=== PATIENT | male | born 1965 | race Hispanic/Latino ===

== ENCOUNTER 2018-12-30 07:48 | Observation (INO) | payer BC, SELFPAY ==
[2018-12-30] MEDS ORDERED: Aspirin Chewable 81 MG TAB ONE (08:45)
[2018-12-30] MEDS ORDERED: Nitroglycerin 0.4 MG TAB 1 EACH ONE (08:45)
[2018-12-30 08:49] LABS: #Eosinphils 0.1 thou/uL (0.0-0.7); #Lymphocytes 1.9 thou/uL (1.20-3.40); #Monocytes 0.4 thou/uL (0.11-0.59); #Neutrophils 3.4 thou/uL (1.40-6.50); %Basophils 0.7 % (0.0-1.0); %Eosinophils 2.2 % (0.0-10.0); %Lymphocytes 32.2 % (21.0-51.0); %Monocytes 7.3 % (0.0-10.0); %Neutrophils 57.7 % (42.0-75.0); Hemoglobin 16.5 g/dL (14.0-18.0); Mean Corpuscular HGB CONC 33.6 g/dL (32.0-36.0); Mean Corpuscular Hemoglobin 32.6 pg (27.0-31.0); Mean Corpuscular Volume 96.9 fL (78.0-98.0); Mean Platelet Volume 8.2 fL (7.4-10.4); Platelet Count 259 thou/uL (130-400); RBC Distribution Width 11.2 % (11.5-14.5); Red Blood Cell (RBC) Count 5.06 mill/uL (4.70-6.10); White Blood Cell (WBC) Count 5.8 thou/uL (4.8-10.8)
--- NOTE | 2018-12-30 09:08 | RAD ---
FRONTAL VIEW CHEST: Indication: Chest pain. FINDINGS: Lungs are clear. No effusion or pneumothorax. Cardiac silhouette is normal in size. IMPRESSION: No focal consolidation. POS: TPC
[2018-12-30 09:11] LABS: ALT (SGPT) 34 U/L (8-55); AST (SGOT) 28 U/L (5-34); Albumin 4.2 g/dL (3.5-5.0); Alkaline Phosphatase 77 U/L (40-150); Anion Gap 15 mmol/L (10-20); BUN (Urea Nitrogen) 10 mg/dL (8.4-25.7); Bilirubin, Total 1.1 mg/dL (0.2-1.2); Calc. Creatinine Clearance 0 mL/min (70-130); Calcium 9.8 mg/dL (7.8-10.44); Carbon Dioxide 23 mmol/L (22-29); Chloride 103 mmol/L (98-107); Estimated GFR-MDRD Greater than 90; Globulin 3.3 g/dL (2.4-3.5); Glucose 110 mg/dL (70-105); Protein, Total 7.5 g/dL (6.0-8.3); Sodium 137 mmol/L (136-145)
[2018-12-30] MEDS ORDERED: Acetaminophen 500 MG TAB ONE (10:33)
[2018-12-30] MEDS ORDERED: Nitroglycerin 2% Ointment 1 INCH/1 GM Packet ONE ×2 (10:33→17:22)
--- NOTE | 2018-12-30 10:50 | PDOC.FPRHP ---
- History of Present Illness Chief Complaint: chest pain, headache History of Present Illness: 53 yo Previously healthy male presents with left sided dull chest pain that radiates to the shoulder and under-arm, rated 6/10. 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 He reports he felt dizzy, so he drank water. Nothing makes it worse, nitro helped. Denies SOB, +cough, +chills last night. Nausea today with headache that started last night. Tylenol helped the headache. Occasional reflux with spicy meals. No recent trauma or car accidents. CXR neg, EKG NSR with bradycardia to 56. D dimer negative. CBC wnl. trop neg x1. - Home Medications Medication Instructions Recorded Confirmed Type Allopurinol 100 mg PO DAILY 12/30/18 12/30/18 History Lisinopril/Hydrochlorothiazide 1 tablet PO BID 12/30/18 12/30/18 History [Lisinopril-Hctz 10-12.5 mg Tab] - History PMHx: Gout, HTN PSHx: Rt hand surgery FHx: sister had heart valve surgery when young, no family history of AR Social: smokes 1 pack per week. 25 years of smoking. 3 PY. Drinks 3-4 beers/day , last one Friday at dinner time (supper). No illicit drug use. Allergies: NKDA - Review of Systems General: reports: fever/chills (yesterday) Eyes: denies: eye pain, vision changes ENT: denies: nasal congestion, rhinorrhea Respiratory: reports: cough, shortness of breath (intermittent with CP). denies : congestion Cardiovascular: reports: chest pain. denies: palpitation Gastrointestinal: reports: nausea. denies: vomiting, diarrhea, constipation, abdominal pain Genitourinary: denies: dysuria, discharge Skin: denies: rashes, lesions Musculoskeletal: denies: swelling, arthritis/arthralgias Neurological: denies: numbness, weakness Psychological: denies: anxiety, depression - Vital signs BP: 127/82 HR: 56 RR: 16 Tmax: 97.3 Pox: 95% on RA Wt: 86 kg - Physical Exam Constitutional: NAD, awake, alert and oriented HEENT: normocephalic and atraumatic, PERRLA, EOMI, grossly normal vision, grossly normal hearing, MMM, oropharynx clear Neck: supple, no LAD Chest: other (mild ttp of sternum) -Chest: reproducible chest pain Heart: RRR, normal S1/S2, no murmurs/rubs/gallops, no edema Lungs: CTAB, no respiratory distress, good air movement, no wheezing Abdomen: soft, non-tender, bowel sounds present Musculoskeletal: normal structure, normal tone Neurological: no focal deficit, normal sensation Skin: no rash/lesions, good turgor, capillary refill <2 seconds Heme/Lymphatic: no unusual bruising or bleeding, no purpura Psychiatric: normal mood and affect, good judgment and insight, intact recent and remote memory FMR H&P: Results - Labs Result Diagrams: 12/30/18 08:38 12/30/18 08:38 Lab results: WBC 5.8 thou/uL (4.8-10.8) 12/30/18 08:38 Hgb 16.5 g/dL (14.0-18.0) 12/30/18 08:38 Hct 49.1 % (42.0-52.0) 12/30/18 08:38 MCV 96.9 fL (78.0-98.0) 12/30/18 08:38 Plt Count 259 thou/uL (130-400) 12/30/18 08:38 Neutrophils % 57.7 % (42.0-75.0) 12/30/18 08:38 Sodium 137 mmol/L (136-145) 12/30/18 08:38 Potassium 4.0 mmol/L (3.5-5.1) 12/30/18 08:38 Chloride 103 mmol/L (98-107) 12/30/18 08:38 Carbon Dioxide 23 mmol/L (22-29) 12/30/18 08:38 BUN 10 mg/dL (8.4-25.7) 12/30/18 08:38 Creatinine 0.85 mg/dL (0.7-1.3) 12/30/18 08:38 Glucose 110 mg/dL (70-105) H 12/30/18 08:38 Calcium 9.8 mg/dL (7.8-10.44) 12/30/18 08:38 Total Bilirubin 1.1 mg/dL (0.2-1.2) 12/30/18 08:38 AST 28 U/L (5-34) 12/30/18 08:38 ALT 34 U/L (8-55) 12/30/18 08:38 Alkaline Phosphatase 77 U/L (40-150) 12/30/18 08:38 Serum Total Protein 7.5 g/dL (6.0-8.3) 12/30/18 08:38 Albumin 4.2 g/dL (3.5-5.0) 12/30/18 08:38 - EKG Interpretation EKG: NSR, bradycardia 56 bpm - Radiology Interpretation Chest x-ray Status: image reviewed by me, report reviewed by me Additional comment: negative FMR H&P: A/P - Problem List (1) Chest pain Status: Acute Code(s): R07.9 - CHEST PAIN, UNSPECIFIED (2) HTN (hypertension) Status: Chronic Code(s): I10 - ESSENTIAL (PRIMARY) HYPERTENSION (3) Gout Status: Chronic Code(s): M10.9 - GOUT, UNSPECIFIED (4) Tobacco abuse Status: Acute Code(s): Z72.0 - TOBACCO USE (5) ETOH abuse Status: Acute Code(s): F10.10 - ALCOHOL ABUSE, UNCOMPLICATED - Plan Typical Chest pain - Cardiac vs costochondritis vs GERD vs other - Heart score of 4 - EKG and CXR normal - CBC wnl - NPO for Stress test - trend cardiac enzymes - D-dimer negative Gout - Continue home medication HTN - Continue home medication Alcohol abuse -Last drink Friday evening. -Ase protocol Tobacco abuse - substance abuse counselor cessation, ~5 PY history Diet: NPO for stress DVT ppx: SCDs GI ppx: none PCP: ASTRID Frances Dispo: tele obs FMR H&P: Upper Level - Pertinent history 53M presenting to ED with chest pain that started yesterday afternoon while at work and that worsened overnight. He describes a left sided sharp pain that radiates to his left axilla. The pain is accompanied by dizziness and nausea. He denies any diaphoresis or SOB. The patient works on his feet and the initial episode of pain resolved with rest. Nitro given in the ED has resolved the pain as well. He denies any recent cough, fever/chills, lower extremity edema, or reflux. ED: nitrobid, nitro 0.4mg SL, ASA, tylenol - Pertinent findings 145/85 mmHg 58 bpm 97% on RA 16 RR 98.4F Gen: no acute distress CV: RRR; no murmurs Pulm: CTA-B Abd: soft non tender MSK: TTP over xyphoid process Ext: no cyanosis or edema trop: negative x 1 EKG: NSR with rate of 58 CBC, CMP, D-dimer negative - Plan Date/Time: 12/30/18 1050 I, Leno Yepez, have evaluated this patient and agree with findings/plan as outlined by internet application developer resident. Pertinent changes/additions are listed here. Typical chest pain: left sided that began with exertion and resolves with rest and nitro. Will continue morphine, nitro, oxygen PRN and order stress test. Heart score of 4. He denies any sxs for GERD, PNA, dissection. Vitals signs are stable. Trend cardiac enzymes and f/u accordingly. Addendum - Attending - Attending Attestation Date/Time: 12/31/18 3217 I personally evaluated the patient and discussed the management with Dr. Rodriguez and team on 12/30. I agree with and repeated the History, Examination, Assessment and Plan documented above with any addition or exceptions noted below.
[2018-12-30] MEDS ORDERED: Morphine 4 MG/ML VIAL SLOW IVP PRN (11:21)
[2018-12-30] MEDS ORDERED: Nitroglycerin 0.4 MG TAB (25 Tab Bottle) SL PRN (11:22)
[2018-12-30] MEDS ORDERED: Acetaminophen 325 MG TAB PO PRN (11:31)
[2018-12-30] MEDS ORDERED: Ondansetron PF 4 MG/2 ML Vial IVP PRN (11:31)
[2018-12-30] MEDS ORDERED: Ondansetron ODT 4 MG TAB PO PRN (11:31)
[2018-12-30 12:15] LABS: Troponin I Less than 0.010 ng/mL (< 0.028)
[2018-12-30] MEDS: Sodium Chloride 0.9% 1,000 ML IV SCH ×2 (13:27→20:36)
[2018-12-30 16:23] LABS: Troponin I Less than 0.010 ng/mL (< 0.028)
--- NOTE | 2018-12-30 16:32 | NM ---
CARDIAC SPECT: CLINICAL HISTORY: 53-year-old male with acute coronary syndrome, chest pain, hypertension, smoker. TECHNIQUE: A stress-only myocardial perfusion scan was performed following the intravenous administration of 33 mCi technetium-99m sestamibi. Exercise stress was monitored and interpreted by Dr. Hernandez. FINDINGS: Homogeneous tracer distribution is seen in the myocardial segments on the post stress images. GATED SPECT LVEF: 67%. WALL MOTION EXAM: Normal. IMPRESSION: Normal post stress myocardial perfusion scan. POS: TESSY
[2018-12-30] MEDS ORDERED: Lidocaine 2% Viscous Solution 10 ML, Aluminum & Magnesium Hydroxide 30 ML SSW SCH (17:15)
[2018-12-30] MEDS ORDERED: Acetaminophen 325 MG TAB ONE (17:22)
[2018-12-30 19:20] VITALS: BMI 26.3
[2018-12-30 19:29] VITALS: TEMP 98.4
--- NOTE | 2018-12-30 20:42 | PDOC.EVN ---
Event Note - Event Note Event Note: Attending note. Chest pain while painting, substernal with assoc nausea, no sig diaphoresis, no sob. B/w rest and now resolved. Unremarkable exam. Labs reassuring. Plan for stress and dispo pending.
[2018-12-30] MEDS ORDERED: Lisinopril/Hydrochlorothiazide 10 mg/12.5 mg Tablet PO SCH (21:00)
[2018-12-30] MEDS ORDERED: Nitroglycerin 2% Ointment 1 INCH/1 GM Packet TOP SCH (22:00)
[2018-12-30 22:04] VITALS: BP 125/71
[2018-12-31] MEDS ORDERED: Allopurinol 100 MG TAB PO SCH (09:00)
--- NOTE | 2019-01-01 02:23 | DIS ---
DATE OF ADMISSION: 12/30/2018 DATE OF DISCHARGE: 12/30/2018 RESIDENT: Sherrie Rodriguez MD. CONSULT: None. PROCEDURES: 1. Stress test on 12/30/2018, left ventricular ejection fraction 67%. Wall motion is normal. Impression, normal post stress myocardial perfusion scan. 2. Chest x-ray on 12/30/2018, impression, no focal consolidation. PRIMARY DIAGNOSIS: Costochondritis. SECONDARY DIAGNOSES: 1. Gout. 2. Hypertension. 3. Alcohol abuse. 4. Tobacco abuse. DISCHARGE MEDICATIONS: 1. Allopurinol 100 mg p.o. daily. 2. Lisinopril/hydrochlorothiazide 07/24.5 one tablet p.o. b.i.d. DISCONTINUED MEDICATIONS: None. HISTORY OF PRESENT ILLNESS/HOSPITAL COURSE: This is a 53-year-old male who presented with left-sided dull chest pain radiating to the shoulder and underarm , it was 6/10. The patient's pain started at 2:00 p.m. the day before while painting. He reported he felt dizzy, so he drank water. Nothing made the pain worse. However, nitroglycerin seemed to have helped. The patient denies shortness of breath. Admits to cough and chills last night. Also having nausea with headache. Tylenol helps the headache. He reports occasional reflux with spicy meals. He denies any recent trauma or car accidents. Chest x-ray was negative. EKG showed normal sinus rhythm, with bradycardia of 56 bpm. D-dimer was negative. CBC was within normal limits. Troponins were negative x3. The patient did have some reproducible chest pain on exam. The patient's heart score was 4, so a stress test was done which was negative. The patient was discharged in stable condition to home with plans to follow up with PCP. DISPOSITION: Stable. DISCHARGE INSTRUCTIONS: LOCATION: Home. DIET: Heart healthy diet. ACTIVITY: As tolerated. FOLLOWUP: Follow up with PCP Dr. Paul Frances within 1 week. Job ID: [id number] MTDD
--- NOTE | 2019-01-02 16:06 | EKG ---
Test Reason : Blood Pressure : / mmHG Vent. Rate : 054 BPM Atrial Rate : 054 BPM P-R Int : 160 ms QRS Dur : 088 ms QT Int : 430 ms P-R-T Axes : 054 045 055 degrees QTc Int : 407 ms Sinus bradycardia Otherwise normal ECG Confirmed by MILAN GRAYSON DO ([id number]), communications editor HELGA BERNAL ([id number]) on 01/02/2019 4:06:32 PM Referred By: Confirmed By:MILAN GRAYSON DO
== END 2018-12-30 22:29 | disposition home or self-care (01) ==
LOC: ERS 07:48 → ERHOLD 11:08 → 2SW 19:10
PROVIDERS: ADMIT Student in an Organized Health Care Education/Training Program; ATTEND Student in an Organized Health Care Education/Training Program
DX: M94.0 Chondrocostal junction syndrome [Tietze] (principal); M10.9 Gout, unspecified; F17.210 Nicotine dependence, cigarettes, uncomplicated; F10.10 Alcohol abuse, uncomplicated; I10 Essential (primary) hypertension; Z79.899 Other long term (current) drug therapy
CPT/HCPCS: 36415; 71045; 78452; 80053; 84484; 85025; 85379; 93005; 93017; A9500; G0378

== ENCOUNTER 2019-04-23 05:40 | Emergency (ER) | payer SELFPAY ==
[2019-04-23] MEDS ORDERED: diphenhydrAMINE 50 MG/ML VIAL ONE (06:35)
[2019-04-23] MEDS ORDERED: Ketorolac Tromethamine 30 MG/ML VIAL ONE (06:35)
[2019-04-23] MEDS ORDERED: Metoclopramide HCl 10 MG/2 ML VIAL ONE (06:35)
[2019-04-23 06:36] LABS: #Eosinphils 0.1 thou/uL (0.0-0.7); #Lymphocytes 1.6 thou/uL (1.20-3.40); #Monocytes 0.5 thou/uL (0.11-0.59); %Basophils 0.7 % (0.0-1.0); %Eosinophils 2.6 % (0.0-10.0); %Lymphocytes 29.7 % (21.0-51.0); %Monocytes 9.6 % (0.0-10.0); %Neutrophils 57.4 % (42.0-75.0); Hemoglobin 13.8 g/dL (14.0-18.0); Mean Corpuscular HGB CONC 34.3 g/dL (32.0-36.0); Mean Corpuscular Hemoglobin 33.2 pg (27.0-31.0); Mean Corpuscular Volume 96.9 fL (78.0-98.0); Mean Platelet Volume 8.1 fL (7.4-10.4); Platelet Count 193 thou/uL (130-400); RBC Distribution Width 11.2 % (11.5-14.5); Red Blood Cell (RBC) Count 4.16 mill/uL (4.70-6.10); White Blood Cell (WBC) Count 5.3 thou/uL (4.8-10.8)
[2019-04-23 07:01] LABS: ALT (SGPT) 31 U/L (8-55); AST (SGOT) 19 U/L (5-34); Albumin 3.9 g/dL (3.5-5.0); Alkaline Phosphatase 63 U/L (40-150); Anion Gap 12 mmol/L (10-20); BUN (Urea Nitrogen) 10 mg/dL (8.4-25.7); Calc. Creatinine Clearance 0 mL/min (70-130); Carbon Dioxide 23 mmol/L (22-29); Chloride 104 mmol/L (98-107); Estimated GFR-MDRD Greater than 90; Globulin 2.7 g/dL (2.4-3.5); Glucose 101 mg/dL (70-105); Potassium 3.6 mmol/L (3.5-5.1); Protein, Total 6.6 g/dL (6.0-8.3); Sodium 135 mmol/L (136-145)
--- NOTE | 2019-04-23 07:45 | CT ---
CT OF HEAD NONCONTRAST: CLINICAL HISTORY: Headache, intermittent in duration. Upper extremity paresthesias. FINDINGS: Normal size ventricular system, without evidence of intracranial hemorrhage, mass effect, or midline shift. Paranasal sinuses are clear, aside from minimal mucosal thickening. IMPRESSION: No acute intracranial hemorrhage or mass effect. POS: KEITH
== END 2019-04-23 07:41 | disposition home or self-care (01) ==
LOC: ERS 05:40
DX: G43.909 Migraine, unspecified, not intractable, without status migrainosus (principal); M10.9 Gout, unspecified; I10 Essential (primary) hypertension; F17.210 Nicotine dependence, cigarettes, uncomplicated
CPT/HCPCS: 36415; 70450; 80053; 85025; 96374; 96375; J1200; J1885; J2765